=== PATIENT | male | born 1945 | race Caucasian/White ===

== ENCOUNTER → 2024-05-23 06:22 | Outpatient (REF) | payer MEDICARE, SELFPAY ==
[2024-05-23 06:57] LABS: % Basophils 0.6 % (0-2); % Eosinophils 4.9 % (0-6); % Immature Granulocytes 0.3 % (0-0.5); % Monocytes 7.4 % (1.7-9.3); % Neutrophils 52.8 % (42.2-75.2); Absolute Eosinophils 0.4 10^3/uL (0-0.7); Absolute Lymphocytes 2.4 10^3/uL (1.2-3.4); Absolute Monocytes 0.5 10^3/uL (0.1-0.6); Absolute Neutrophils 3.8 10^3/uL (1.4-6.5); Hematocrit 42.2 % (39.0-52.0); Hemoglobin 14.6 g/dL (13.0-18.0); Mean Corp Hgb Conc. 34.6 g/dL (33.0-37.0); Mean Corpuscular Hgb 32.4 pg (27.0-31.0); Mean Corpuscular Volume 93.6 fL (80.0-94.0); Mean Platelet Volume 9.4 fL (7.4-10.4); Nucleated Red Blood Cells % 0 % (-); Platelet Count 147 10^3/uL (130-400); Red Blood Cell Count 4.51 10^6/uL (4.70-6.10); Red Cell Dist. Width 12.8 % (11.5-14.5); White Blood Cell Count 7.1 10^3/uL (4.8-10.8)
[2024-05-23 07:06] LABS: ALT (SGPT) 21 U/L (0-50); AST (SGOT) 27 U/L (17-59); Albumin 3.9 g/dl (3.5-5.0); Alkaline Phosphatase 67 U/L (38-126); Blood Urea Nitrogen 25 mg/dl (9-20); Calcium 8.9 mg/dl (8.4-10.2); Carbon Dioxide 30 mmol/L (22-30); Chloride 105 mmol/L (98-107); Glucose 114 mg/dl (70-99); HDL Cholesterol 58 mg/dl; LDL Cholesterol, Calculated 113 mg/dl; Potassium 4.5 mmol/L (3.5-5.1); Sodium 142 mmol/L (135-145); Total Bilirubin 0.9 mg/dl (0.2-1.3); Total Cholesterol 185 mg/dl (50-199); Total Protein 6.4 g/dl (6.3-8.2); Triglyceride 71 mg/dl (10-149); Very Low Density Lipoprotein 14 mg/dl (0-30); eGFR > 60.00
== END ==
LOC: REG 06:22
PROVIDERS: ATTENDING PHYSICIAN Family Medicine
DX: E78.00 Pure hypercholesterolemia, unspecified (principal); I10 Essential (primary) hypertension; Z95.2 Presence of prosthetic heart valve; G30.1 Alzheimer's disease with late onset; R79.9 Abnormal finding of blood chemistry, unspecified
CPT/HCPCS: 36415; 80053; 80061; 85025

== ENCOUNTER → 2024-06-28 09:45 | Outpatient (REF) | payer MEDICARE, SELFPAY | LOC: DHVS 09:45 | PROVIDERS: ATTENDING PHYSICIAN Surgery Vascular Surgery; FAMILY PHYSICIAN Family Medicine | DX: I73.9 Peripheral vascular disease, unspecified (principal) | CPT/HCPCS: 93922; 93925 ==

== ENCOUNTER 2024-10-20 19:00 | Emergency (ER) | payer MEDICARE, SELFPAY ==
[2024-10-20 19:05] VITALS: BP 143/74
--- NOTE | 2024-10-20 19:49 | ED.GENMED ---
History of Present Illness
General
Chief Complaint: Change in Mental Status
Source: patient and family
Exam Limitations: altered mental status and dementia
Time Seen by Provider: 10/20/24 19:20
Nursing documentation reviewed up to this point in time: agreed with
History of Present Illness
History of Present Illness:
78-year-old male history dementia companied by family friend and spouse to note he was agitated calling out at things that were not there did recognize his , no falls no fever, hearing noises at the hospital does not recognize his does
recognize the friend this with him appears to be moving all extremities no recent illnesses, no new meds
Past History
Past History
ED Past Medical History: Valvular disease and Other (Dementia)
ED Past Surgical History: Cardiac
Patient has exhibited threatening behavior?: No
PSI?: No
Social History
Tobacco: Non-smoker
Alcohol: None
Drug: None
Personal:
Living: with family
Employment: Retired
Phy Exam
Physical Exam
Physical Exam:
Physical Exam
General: 78-year-old male follows simple commands oriented to place and name opens eyes to voice
Neck: No jaundice no tongue bite no overt signs of head or neck
Heart: Regular
Lungs: no acute respiratory distress.
Abdomen: Nontender
Neuro: Globally weak moves all extremities
Skin: no rash
Psychiatric: Redirectable flat affect
Extremities: no edema.
Course
Orders/Labs/Results
Orders:
Orders
10/20/24 19:47
Electrocardiogram (*1) Stat
Reason for Study: Other
Other Reason for Exam: neuro symptoms
CT Head W/o Iv Contrast Urgent
Comment:
Reason For Exam: clnfusion
EKG- Treatment ONCE
Rectal Temp- Treatment ONCE
10/20/24 19:59
Complete Blood Count/With Diff Urgent
Comprehensive Metabolic Panel Urgent
10/20/24 22:26
0.9% Sodium Chloride 500 ml [Nss] 500 ml IV BOLUS
10/20/24 22:51
Case Management Consult ONCE
Case Management Consult: Discharge Planning
Crisis Consult Routine
Reason for Consult: agiation dementia, ? geripsych referrral
Request for Physical Therapy [NOTICE] Routine
10/20/24 23:41
Urinalysis Reflex To Culture Urgent
Date Specimen was Collected: 10/20/24
Time Specimen was Collected: 23:40
Urine Microscopic Reflex Cult Urgent
Abnormal Lab Results
10/20/24 10/20/24
19:59 23:41
RBC 4.39 L 10^6/uL
(4.70-6.10)
MCH 32.8 H pg
(27.0-31.0)
Absolute Monos (auto) 0.8 H 10^3/uL
(0.1-0.6)
Sodium 131 L mmol/L
(135-145)
Carbon Dioxide 31 H mmol/L
(22-30)
Glucose 100 H mg/dl
(70-99)
Total Protein 6.1 L g/dl
(6.3-8.2)
Ur Occult Blood Reflex 2+ A
(Negative)
Urine RBC 11-15 A /HPF
(0-2)
Urine Bacteria (Reflex) Few A
(Negative)
10/20/24 19:59
10/20/24 19:59
Vital Signs
Initial and Last Documented VS:
Initial Vital Signs
Temp Pulse BP Pulse Ox
99.1 F 71 143/74 95
10/20/24 19:05 10/20/24 19:05 10/20/24 19:05 10/20/24 19:05
Last Documented Vital Signs
Temp Pulse BP Pulse Ox
99.7 F 71 138/71 95
10/20/24 19:57 10/20/24 19:05 10/20/24 23:00 10/20/24 23:46
MDM/Problems Addressed
Differential Diagnosis Includes:
Dementia, delirium UTI electrolyte abnormality stroke medication effect
MDM/Problems Addressed:
Agitation
Chronic conditions affecting care:
Dementia
Chronic conditions affecting care: Neurological disorder
Acute Exacerbation and/or Progression of Chronic Illness: Neurological disorder
*Radiology
Radiology exam reviewed: radiology read reviewed
*Pulse Oximetry
Patient hypoxic: no
*EKG
Interpreted by ED Provider?: Yes
Interpretation: normal
Comparison EKG: no comparison EKG present
Heart Rate: 78
Rate: normal
Ischemia: no ischemia
*Double Reamer Operator Interpretation
Rate: normal
Interpretation: normal
Heart Rate: 78
Rhythm: sinus
*Critical Care Note
Total Time (30-74mins, 75-104mins- exclusive of procedures): Not Applicable
Update Note
Update Note:
10:25 PM patient resting comfortably, labs noted CT noted urine pending Long conversation with patient spouse and friend, spouse is overwhelmed, friend feels unsafe taking the patient home apparently has been impulsive threatening to leave the home
etc. will keep him here for some respite, consideration for case management PT will wait to look at his urinalysis to decide whether he would be admitted upstairs
Update, urinalysis noted, no clear signs of infection
Patient was seen by crisis apparently does not believe that patient's symptoms are due to any mental illness but due to dementia she apparently declined any resources from crisis
ED Attending Note
-
Portions of this chart may have been created with voice recognition software.� Occasional wrong word or��sound alike� substitutions may have occurred due to the inherent limitations of voice recognition software.
Discharge Plan
Departure
Patient Disposition: Other
Date of Disposition: 10/20/24
Time of Disposition: 22:53
Patient with high blood pressure during this ER visit?: No
Condition: Good
Discharge Problem:
Dementia
Instructions: Dementia (DC)
Prescriptions:
No Action
latanoprost 0.005 % Drops
1 drp OPHTHALMIC (EYE) QPM
tamsulosin 0.4 mg Capsule
0.4 mg PO QPM
brimonidine 0.2 % Drops
1 drp OPHTHALMIC (EYE) BID
allopurinol 300 mg Tablet
300 mg PO DAILY
acetaminophen 500 mg Capsule
1,000 mg PO QID PRN (Reason: pain)
timolol maleate 0.5 % Drops, Once Daily
1 drp OPHTHALMIC (EYE) DAILY
Centrum Silver Men 300-600-300 mcg Tablet
1 tab PO DAILY
aspirin 81 mg Capsule
81 mg PO DAILY
Referrals:
Amanuel Fields MD [Family Provider] -
Interventions
Interventions:
*Risk Screen - Suicide Last Done: 10/20/24 19:05
*General Assessment Last Done: 10/20/24 19:05
*Neglect/Abuse Screening Last Done: 10/20/24 19:05
*ED COVID-19 Vaccine History Last Done: 10/20/24 19:14
ED- Pulmonary Assessment Last Done: 10/20/24 19:14
ED- Neurological Assessment Last Done: 10/20/24 19:14
ED- Cardiac Assessment Last Done: 10/20/24 19:14
ED Swallowing Screen Last Done: 10/20/24 22:39
Discharge Date and Time
Print Language: LIBERIAN
[2024-10-20 20:00] VITALS: BP 132/76
[2024-10-20 20:05] LABS: % Basophils 0.4 % (0-2); % Eosinophils 2.5 % (0-6); % Immature Granulocytes 0.5 % (0-0.5); % Lymphocytes 22.3 % (20.5-51.1); % Monocytes 9.2 % (1.7-9.3); % Neutrophils 65.1 % (42.2-75.2); Absolute Eosinophils 0.2 10^3/uL (0-0.7); Absolute Lymphocytes 1.8 10^3/uL (1.2-3.4); Absolute Monocytes 0.8 10^3/uL (0.1-0.6); Absolute Neutrophils 5.3 10^3/uL (1.4-6.5); Hematocrit 41.1 % (39.0-52.0); Hemoglobin 14.4 g/dL (13.0-18.0); Mean Corpuscular Hgb 32.8 pg (27.0-31.0); Mean Corpuscular Volume 93.6 fL (80.0-94.0); Mean Platelet Volume 9.3 fL (7.4-10.4); Nucleated Red Blood Cells % 0 % (-); Platelet Count 156 10^3/uL (130-400); Red Blood Cell Count 4.39 10^6/uL (4.70-6.10); Red Cell Dist. Width 12.2 % (11.5-14.5); White Blood Cell Count 8.1 10^3/uL (4.8-10.8)
[2024-10-20 20:24] LABS: ALT (SGPT) 17 U/L (0-50); AST (SGOT) 22 U/L (17-59); Albumin 3.8 g/dl (3.5-5.0); Alkaline Phosphatase 68 U/L (38-126); Blood Urea Nitrogen 17 mg/dl (9-20); Calcium 8.5 mg/dl (8.4-10.2); Carbon Dioxide 31 mmol/L (22-30); Chloride 99 mmol/L (98-107); Glucose 100 mg/dl (70-99); Potassium 4.3 mmol/L (3.5-5.1); Sodium 131 mmol/L (135-145); Total Protein 6.1 g/dl (6.3-8.2); eGFR > 60.00
[2024-10-20 21:06] VITALS: BP 157/81
[2024-10-20 22:00] VITALS: BP 136/90
[2024-10-20] MEDS: NSS 500 IV (22:31)
[2024-10-20 23:00] VITALS: BP 138/71
[2024-10-20 23:47] LABS: Urine Albumin Negative (Neg - Trace); Urine Bilirubin Negative (Negative); Urine Character Clear (Clear); Urine Color Yellow; Urine Glucose Negative (Negative); Urine Ketone Negative (Negative); Urine Leukocyte Negative (Negative); Urine Nitrite Negative (Negative); Urine Occult Blood 2+ (Negative); Urine Urobilinogen Negative (Neg - 1+)
[2024-10-21] VITALS (9 sets, daily range): BP systolic 127–162; BP diastolic 71–82
[2024-10-21] LABS: Urine Squamous Cell 0-2 /LPF (Few)
[2024-10-21 00:01] LABS: Urine Bacteria Few (Negative); Urine White Cell 0-2 /HPF (0-5)
--- NOTE | 2024-10-21 06:55 | EDRN ---
the pts approached this RN and Jared PEÑA at the nurses station and stated that she wanted her repositioned in the stretcher, this RN and Jared RN entered the pts room and repositioned the pt, no s/s of distress, the pts asked to
order the pt a breakfast tray, this RN notified the pts that since the pt was not admitted and since there is no diet order for the pt that a tray would not be able to be ordered for the pt, this RN offered the pts an ER food box and the
pts declined, this RN notified the pts that she could go down to the cafateria and get something to eat for her and herself and the pts stated to this RN, 'I am not leaving him', this RN told the pts that if she changed
her mind to let this RN know and this RN could get her an ER food box
--- NOTE | 2024-10-21 07:10 | EDRN ---
the pts approached this RN at the nurses station and stated, 'We have been here all night and i want to go home, i want to know why he wasn't admitted and what is going on and he is hungry', this RN apologized to the pts for the wait and
apologized for her frustration and this RN offered the pts an ER food box and the pts declined, this RN notified the pts that currently we are waiting for case management and notified the pts that this RN would reach out to case
management, per the pts the pt does not want to stay in the stretcher and wants to sit in the chair in the pts room, the pt is able to ambulate independently without difficulty, will continue to monitor the pt closely
--- NOTE | 2024-10-21 07:15 | EDRN ---
the pt approached this RN at the nurses station and asked this RN for an ER food box for the pt, this RN provided 2 ER food boxes for the pt and the pts , the pts stated to this RN, 'I am just so upset, it looks like the other nurse took
off for the day and just left us here with no food, i mean he wasn't going to tell you that my needed something to eat? i mean we have been here all night and no one has admitted my so he could order food, and this really used to be
a good hospital i don't know what happened', this RN apologized to the pts for her frustrations and did remind the pts that this RN offered a food box and she declined it, this RN also notified the pts again that if she wanted to she
was more than welcome to go to the cafateria and get food, the pt stated, 'The food box is fine, i'm not leaving my in here', this RN offered to stay at the pts bedside while the pts goes to the cafateria and the pts declined, the
pt is sitting in the chair in the room eating ER food box, no s/s of distress, will continue to monitor the pt closely
--- NOTE | 2024-10-21 08:17 | EDRN ---
the pts approached this RN at the nurses station and stated, 'I want to know if the doctor is going to be doing rounds and i want to see case management', this RN notified Dr. Wiseman
--- NOTE | 2024-10-21 08:33 | EDRN ---
Sonja from case management currently at the pts bedside
--- NOTE | 2024-10-21 08:56 | ED.ADDNOTE ---
ED Addendum
ED Addendum
ED Addendum Note:
I evaluated the patient at bedside. Evidence of dementia. CT head unremarkable. Labs unremarkable with exception of slightly low sodium. No clear indication for admission to the hospital. did speak to Sonja from case management prior to
discharge. eager to take him home now.
--- NOTE | 2024-10-21 09:28 | CM ---
CM reviewed medical records. CM confirmed with that she does not want patient going to [facility]. Patient's appears very anxious, but she stated that she wants to 'keep patient with her'. CM referred patient to [facility]. Patient provided written information on [facility].
Patient's is agreeable to home plan.
== END 2024-10-21 09:07 | disposition home or self-care (01) ==
LOC: EMR 19:00
PROVIDERS: EMERGENCY PHYSICIAN Emergency Medicine; FAMILY PHYSICIAN Family Medicine
DX: F03.911 Unspecified dementia, unspecified severity, with agitation (principal)
CPT/HCPCS: 96360; 99284; 70450; 80053; 81003; 81015; 85025; 93005